=== PATIENT | male | born 1955 | race Caucasian/White ===

== ENCOUNTER 2018-01-07 07:31 | Emergency (ER) | payer OTHER ==
[~2018-01-07] VITALS: Ht 182.9 cm; Wt 99.5 kg
[~2018-01-07 07:31] MED LIST: ATEN1TAB74 PO; ATOR10TA PO; FENO145T2 PO; HYDR-2768 PO; LOSA100T PO; PERC5TAB12 PO; WARF-20 PO
[2018-01-07 07:38] VITALS: BP 131/83; PULSE 56; RESP 16; TEMP 98.3; O2SAT 94
[2018-01-07] MEDS ORDERED: LOSA100T PO (07:51)
[2018-01-07] MEDS ORDERED: ATOR10TA15 PO (07:51)
[2018-01-07] MEDS ORDERED: DILT240C44 PO (07:51)
[2018-01-07] MEDS ORDERED: COUM10TA PO (07:51)
[2018-01-07] MEDS ORDERED: HYDR25TA5 PO (07:51)
[2018-01-07] MEDS ORDERED: POTA1TAB77 PO (07:51)
[2018-01-07] MEDS ORDERED: WARF-22 PO (07:51)
[2018-01-07] MEDS ORDERED: HYDR-3288 PO (08:39)
[2018-01-07] MEDS ORDERED: CYCL10TA PO (08:39)
--- NOTE | 2018-01-07 08:40 | PD ---
HPI Chief Complaint: Back/ Neck Pain or Injury Time Seen by Provider: 08:34 Travel History International Travel<30 days: No Contact w/Intl Traveler<30days: No Traveled to known affect area: No History of Present Illness HPI 62-year-old male is complaining of low back pain. The pain started on Sunday and has been fairly persistent. Aggravated by any movement. There is no numbness tingling or paresthesias. He has had pain like this before in the past which is responded to conservative measures. He has not had fever or chills. He has there has been no incontinence the pain is located in the midline of the lower back [facility] Past Medical History Hx Anticoagulant Therapy: Yes (warfarin) Arthritis: Yes Cancer: No Cardiac Catheterization: Yes Cardiovascular Problems: Yes (htn on meds, ) High Cholesterol: Yes Diabetes: No Diminished Hearing: No Glaucoma: No Hepatitis: No Hiatal Hernia: No Hypertension: Yes Respiratory: No Immunizations Current: Yes Thyroid Disease: No Tetanus Vaccination: < 5 Years Influenza Vaccination: Yes Past Surgical History Cardiac Surgery: Yes (AORTIC VALVE REPLACEMENT) Genitourinary Surgery: Yes (HEMMORHOID SX) Oral Surgery: Yes (TONSILS) Pacemaker: No Valve Replacement: Yes (aortic valve) Other Surgery: Yes (RIGHT SHOULDER, hemorrhoid surgery) Social History Alcohol Use: Yes (occas. beer , mix drinks a few times a week) Tobacco Use: No (quit approx 30 yrs ago cigs a pack a day) Substance Use: No Allergies-Medications (Allergen,Severity, Reaction): Coded Allergies: metoprolol (Verified Allergy, Intermediate, cough, 01/07/18) Reported Meds & Prescriptions Reported Meds & Active Scripts Active Reported K-Tab (Potassium Chloride) Unknown Strength Tab Unknown Dose PO DAILY Hydrochlorothiazide 25 Mg Tab 25 Mg PO DAILY Atorvastatin (Atorvastatin Calcium) 10 Mg Tab 10 Mg PO HS Losartan (Losartan Potassium) 100 Mg Tab 100 Mg PO DAILY Diltiazem CD 24 HR 240 Mg Caper 240 Mg PO DAILY Coumadin (Warfarin) 10 Mg Tab 10 Mg PO DIRECTED Warfarin 10 Mg Tab 9 Mg PO DIRECTED Review of Systems General / Constitutional: No: Fever, Chills Eyes: No: Diploplia Cardiovascular: No: Palpitations Respiratory: No: Cough, Shortness of Breath Gastrointestinal: No: Vomiting, Diarrhea Genitourinary: No: Urgency, Frequency Musculoskeletal: Positive: Pain, No: Myalgias Skin: No Rash, No Itching Neurologic: No: Weakness, Dizziness Hematologic/Lymphatic: No: Easy Bruising Physical Exam Narrative GENERAL: Well-developed male. He has a lot of pain with any movement SKIN: Focused skin assessment warm/dry. HEAD: Atraumatic. Normocephalic. EYES: Pupils equal and round. No scleral icterus. No injection or drainage. ENT: No nasal bleeding or discharge. Mucous membranes pink and moist. NECK: Trachea midline. No JVD. CARDIOVASCULAR: Regular rate and rhythm. No murmur appreciated. RESPIRATORY: No accessory muscle use. Clear to auscultation. Breath sounds equal bilaterally. GASTROINTESTINAL: Abdomen soft, non-tender, nondistended. Hepatic and splenic margins not palpable. MUSCULOSKELETAL: No obvious deformities. No clubbing. No cyanosis. No edema. There is no midline tenderness of the back. Straight leg raising is painful bilaterally. Sensation is intact. Patellar reflexes are equal NEUROLOGICAL: Awake and alert. No obvious cranial nerve deficits. Motor grossly within normal limits. Normal speech. PSYCHIATRIC: Appropriate mood and affect; insight and judgment normal. Data Data Last Documented VS Vital Signs Date Time Temp Pulse Resp B/P (MAP) Pulse Ox O2 Delivery O2 Flow Rate FiO2 01/07/18 07:46 16 01/07/18 07:38 98.3 56 131/83 (99) 94 MDM Medical Decision Making Medical Screen Exam Complete: Yes Emergency Medical Condition: Yes Medical Record Reviewed: Yes Differential Diagnosis Differential includes back pain exacerbation Narrative Course Patient will be given prescriptions for Flexeril and Lortab. He has a history of endocarditis and is on Coumadin so he probably should not be taking anti- inflammatory medications Diagnosis Primary Impression: Exacerbation of chronic back pain Scripts Hydrocodone-Acetaminophen ([place]) 7.5-325 mg Tab 2 TAB PO Q4H Y for PAIN, #12 TAB 0 Refills Prov: Celestine Ramirez MD 01/07/18 Cyclobenzaprine (Flexeril) 10 Mg Tab 10 MG PO TID for Muscle Spasm, #30 TAB 0 Refills Prov: Celestine Ramirez MD 01/07/18 Disposition: 01 DISCHARGE HOME Condition: Stable Celestine Ramirez MD Jan 07, 2018 08:40
== END 2018-01-07 08:47 | disposition home or self-care (01) ==
LOC: PHEFT 07:31
DX: M54.5 Low back pain (principal); G89.29 Other chronic pain; I10 Essential (primary) hypertension; E78.00 Pure hypercholesterolemia, unspecified; I35.8 Other nonrheumatic aortic valve disorders; Z95.2 Presence of prosthetic heart valve; Z87.891 Personal history of nicotine dependence
CPT/HCPCS: 99283

== ENCOUNTER → 2018-03-08 | Outpatient (CLI) | payer OTHER ==
[~2018-03-08] MED LIST changes: -ATEN1TAB74 PO; -ATOR10TA PO; +ATOR10TA15 PO; +CO Q10CA PO; +COUM10TA PO; +CYCL10TA PO; +DILT240C44 PO; -FENO145T2 PO; -HYDR-2768 PO; +HYDR-3288 PO; +HYDR25TA5 PO; +OMEG100010; -PERC5TAB12 PO; +POTA1TAB77 PO; +VITA1000 PO; -WARF-20 PO; +WARF-22 PO
[2018-03-08 11:00] LABS: HEMATOCRIT 44.2 % (39.0-51.0); HEMOGLOBIN 15.2 GM/DL (13.0-17.0); MEAN CELL VOLUME 90.1 FL (80.0-100.0); MEAN CORPUSCULAR HGB CONC 34.4 % (32.0-36.0); MEAN PLATELET VOLUME 8.1 FL (7.0-11.0); PLATELET COUNT 264 TH/MM3 (150-450); RED CELL DISTRIBUTION WIDTH 13.2 % (11.6-17.2); WHITE BLOOD COUNT 8.1 TH/MM3 (4.0-11.0)
[2018-03-08 11:01] LABS: BILIRUBIN, URINE NEG (NEG); BLOOD, URINE LARGE (NEG); GLUCOSE,URINE NEG (NEG); KETONE, URINE NEG (NEG); NITRITE,URINE NEG (NEG); PH, URINE 5.5 (5.0-8.5); URINE COLOR YELLOW (YELLW/STRAW); URINE LEUKOCYTE ESTERASE NEG (NEG)
[2018-03-08 11:10] LABS: RENAL EPITHELIAL CELLS 0-5 /hpf; SQUAMOUS EPITHELIAL CELL URINE 0-5 /hpf (0-5); WBC, URINE 0-2 /hpf (0-5)
[2018-03-08 11:13] LABS: CHLORIDE 102 MEQ/L (98-107); SODIUM (NA) 136 MEQ/L (136-145)
[2018-03-08 11:16] LABS: ALBUMIN 3.8 GM/DL (3.4-5.0); BICARBONATE 27.6 MEQ/L (21.0-32.0); CALCIUM 8.6 MG/DL (8.5-10.1); GLUCOSE,RANDOM 104 MG/DL (74-106)
[2018-03-08 11:17] LABS: BLOOD UREA NITROGEN 12 MG/DL (7-18); PROTHROMBIN TIME - PATIENT 40.6 SEC (9.8-11.6)
[2018-03-08 11:20] LABS: ALT (GPT) 24 U/L (12-78); AST (GOT) 18 U/L (15-37); CREATININE 0.79 MG/DL (0.60-1.30); GLOMERULAR FILTRATION RATE 99 ML/MIN (>89)
[2018-03-08 11:21] LABS: TOTAL BILIRUBIN ADULT 0.4 MG/DL (0.2-1.0); TOTAL PROTEIN 7.3 GM/DL (6.4-8.2)
[2018-03-08 11:22] LABS: ALKALINE PHOSPHATASE 89 U/L (45-117)
--- NOTE | 2018-03-10 15:15 | EKG ---
Date Performed: 03/08/2018 Time Performed: 11:10:51 PTAGE: 62 years EKG: SINUS BRADYCARDIA WITH FIRST DEGREE AV BLOCK MODERATE INTRAVENTRICULAR CONDUCTION DELAY ABN ORMAL ECG PREVIOUS TRACING : 12/31/2008 08.25 Since the previous tracing, no significant change noted DOCTOR: Gavino Ocasio Interpretating Date/Time 03/10/2018 15:12:48
== END ==
LOC: PHPRE 10:16
PROVIDERS: ATTEND Surgery
DX: Z01.812 Encounter for preprocedural laboratory examination (principal); Z01.810 Encounter for preprocedural cardiovascular examination; M79.609 Pain in unspecified limb; I44.0 Atrioventricular block, first degree
CPT/HCPCS: 36415; 80053; 81001; 85027; 85610; 85730; 93005

== ENCOUNTER → 2018-03-15 | Day surgery (SDC) | payer OTHER ==
--- NOTE | 2018-03-13 17:13 | MH ---
cc: Nick Marin MD DATE OF ADMISSION: 03/15/2018 DATE OF ADMISSION FOR SURGERY: 03/15/2018 ADMITTING DIAGNOSIS: Torn medial meniscus, right knee. REASON FOR ADMISSION: Now for arthroscopy, right knee. HISTORY OF PRESENT ILLNESS: This pleasant 62-year-old male is being admitted today for arthroscopy of the right knee due to torn medial meniscus. OTHER PAST HISTORY: He has a history of arthritis, hypertension and hyperlipidemia. PREVIOUS SURGERIES: Aortic valve replacement. MEDICATIONS: He has currently been taking Coumadin, has recently switched over the last few days to Lovenox in preparation for surgery. He will be off the Lovenox 24 hours before surgery. He also takes Losartan and atorvastatin. REVIEW OF SYSTEMS: Noncontributory. FAMILY HISTORY: Noncontributory. SOCIAL HISTORY: He does not smoke or drink. ALLERGIES: NO KNOWN ALLERGIES. PHYSICAL EXAMINATION: GENERAL: We find a 62-year-old male, well-developed, well-nourished, oriented x3, complaining of pain in his right knee. VITAL SIGNS: Blood pressure 140/82, pulse 66 and regular, respirations 16, temperature 97.9, pulse oximetry 97% on room air. HEENT: Eyes: PERRL. EOMI. Ears, nose and mouth clear. NECK: Supple. LUNGS: Clear. HEART: Regular rate. ABDOMEN: Soft, positive bowel sounds, nontender. EXTREMITIES: Reveal his right knee to be tender with crepitance on range of motion. Neurovascularly intact to his toes. IMPRESSION: Torn medial meniscus, right knee. PLAN: Admit for arthroscopy right knee today. The patient given prescription for postoperative pain control in the office. MD DARIO Cohen/PATRICK , 04:55 PM , 05:11 PM
[~2018-03-15] VITALS: Ht 182.9 cm; Wt 96.0 kg
[~2018-03-15] MED LIST changes: +BUPIVACAINE HCL PF 0.25% 30 ML VIAL ONE; +CHLORHEXIDINE GLUCONATE 2 % 1 PACK (2 CLOTHS) TOPICAL PRN; +CHLORHEXIDINE GLUCONATE 4% SOLN 120 ML BTL TOPICAL SCH; -CYCL10TA PO; +DEXAMETHASONE SOD PHOS 4 MG/ML VIAL ONE; +INSULIN HUMAN REGULAR 1,000 UNITS/10 ML VIAL SQ PRN; +LACTATED RINGER'S 1000 ML IV PRN; +MIDAZOLAM HCL 2 MG/2 ML VIAL ONE; +POVIDONE IODINE 5% (ANTISEPSIS KIT) 4 APPLICATIONS EACH NARE PRN; +SODIUM CHLORID 0.9% 500 ML IV PRN; +ceFAZolin 2 GM PREMIX 50 ML IV SCH; +fentaNYL CITRATE 250 MCG/5 ML AMP ONE
[2018-03-15 12:38] LABS: PROTHROMBIN TIME - PATIENT 10.5 SEC (9.8-11.6)
[2018-03-15 14:15] VITALS: PULSE 59
[2018-03-15 15:55] VITALS: BP 140/81; PULSE 56; RESP 16; TEMP 97.3; O2SAT 97
--- NOTE | 2018-03-15 16:41 | HHI.PR ---
Immediate Post Op Note Procedure Date: Mar 15, 2018 Pre Op Diagnosis: Torn medial meniscus, right knee. Post Op Diagnosis: Torn medial meniscus, right knee. Surgeon: Arti Marin MD Room Clerk(s): Melissa ARRIOLA Procedure: Right knee arthroscopy debrided torn medial meniscus Estimated blood loss: 5cc Anesthesia: LMA Drains: None IVF Urinary Output (mLs): 0 (no craven) Tourniquet time (min at mmHg) none Patient to: SDS Patient Condition: Good Date/Time of Procedure: SEE SURGICAL CARE RECORD Melissa Fowler Mar 15, 2018 16:41
--- NOTE | 2018-03-18 08:21 | MP ---
cc: Nick Marin MD DATE OF OPERATION: 03/15/2018 PREOPERATIVE DIAGNOSIS: Torn medial meniscus, right knee. 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 SURGERY PERFORMED: Arthroscopy excision of torn medial meniscus and ArthroCare shaving of chondromalacia medial compartment. SURGEON: Nick Marin MD DIRECTOR CASE: ZEINAB Rodarte ANESTHESIA: LMA. PROCEDURE IN DETAIL: The patient was brought to the operating room and placed on the operating room table in the supine position. After successful induction of general anesthesia, the patient's ?? leg was prepped and draped in the usual manner. The knee was then placed in a knee crespo and tightened. Arthroscopic examination was then performed by making a stab wound over the proximal superior and medial aspect of the patellofemoral joint for insertion of the inflow cannula and fluid, followed by stab wounds over the medial and lateral joint margins respectively for insertion of the arthroscope, shaver and probe. Arthroscopic examination was then performed which revealed the findings were intact lateral compartment, intact patellofemoral joint, intact anterior cruciate. Medial compartment found to have grade 2 chondromalacia changes in the weightbearing surface. The end of the femur was shaved smoothly using the ArthroCare system. A large posterior horn tear was noted and removed using the ArthroCare cutter, shaver and probe to afford a smooth surface. Rest of the medial compartment was found to be intact. Wound irrigated copiously with lactated Ringer's solution. Excess fluid removed. 8 mL of 0.25% Marcaine plain with 2 mL of Decadron inserted into the knee joint. Skin approximated with interrupted 3-0 nylon suture. Wet and then dry dressing applied to the wound, followed by Xeroform gauze, sterile dressing and thigh-high Jeovanny wrap. No tourniquet utilized. ESTIMATED BLOOD LOSS: 5 mL. COUNTS: Sponge and suture counts were correct. CONDITION: The patient tolerated the procedure well and left the operating room in satisfactory condition. NOTE: ZEINAB Rodarte, was present during the entire procedure to include patient positioning and the procedure. The medical necessity of the nurse practitioner data entry assistant was indicated in this case due to the surgical complexity of the case itself. During the surgical case, the ophthalmic surgical assistant was working the back table while my surgical scrub technologist ZEINAB was directly assisting me. J. MD DARIO Leyva/PATRICK , 02:00 PM , 02:44 PM
== END | disposition home or self-care (01) ==
LOC: PHSDC 11:44
PROVIDERS: ATTEND Surgery
DX: S83.241A Other tear of medial meniscus, current injury, right knee, initial encounter (principal); M94.261 Chondromalacia, right knee; E78.5 Hyperlipidemia, unspecified; I10 Essential (primary) hypertension; Z95.2 Presence of prosthetic heart valve; Z79.01 Long term (current) use of anticoagulants; Z01.812 Encounter for preprocedural laboratory examination
CPT/HCPCS: 01400; 29881; 36415; 85610; 85730; J0690; J1100; J2250; J3010; J7120